=== PATIENT | female | born 1960 | race Caucasian/White ===

== ENCOUNTER 2016-05-08 13:35 | Emergency (ER) | payer OTHER ==
[~2016-05-08] VITALS: Ht 165.1 cm; Wt 54.4 kg
[~2016-05-08 13:35] MED LIST: CIPRO250 MG PO; COLACE100 M1 PO; LEVOFLOXACIN750 MG PO; NORCO 10/325 MG1 TAB PO; NORCO 5/325 MG1 TAB PO; TAPAZOLE10 M1 PO; TAPAZOLE10 MG PO
--- NOTE | 2016-05-08 13:45 | NUR ---
Patient ambulated to bed 01.
--- NOTE | 2016-05-08 13:47 | NUR ---
Dr. Ibarra evaluating patient at bedside.
[2016-05-08 13:50] VITALS: BP 147/95
[2016-05-08] MEDS ORDERED: TOPROL XL50 MG PO (13:53)
[2016-05-08] MEDS ORDERED: KETOROLAC 30 MG/ML VIAL IM ONE (13:55)
[2016-05-08] MEDS ORDERED: HYDROcodone/APAP 5/325 MG 1 TAB TAB PO ONE (13:55)
--- NOTE | 2016-05-08 14:02 | NUR ---
US AT BEDSIDE.
--- NOTE | 2016-05-08 14:20 | NUR ---
PT C/O RIGHT ANKLE/CALVE PAIN X 3 DAYS, STATES NO TRAUMA; DENIES N/V/D; SKIN IS PINK/WARM/DRY; AAOX4 WITH EVEN AND STEADY GAIT; LUNGS CLEAR BL; HR EVEN AND REGULAR; PT DENIES ANY FEVER, CP, SOB, OR COUGH AT THIS TIME; PATIENT STATES PAIN OF 9/10 AT THIS TIME; VSS; PATIENT POSITIONED FOR COMFORT; HOB ELEVATED; BEDRAILS UP X2; BED DOWN. ER MD MADE AWARE OF PT STATUS.
--- NOTE | 2016-05-08 14:27 | NUR ---
XRAY TAKEN AT BEDSIDE ON RIGHT ANKLE BY [employer] HELPER MELODY
[2016-05-08 15:08] VITALS: BP 149/89
== END 2016-05-08 15:08 | disposition home or self-care (01) ==
LOC: MED 13:35
DX: M25.571 Pain in right ankle and joints of right foot (principal); M25.471 Effusion, right ankle; I48.91 Unspecified atrial fibrillation; I10 Essential (primary) hypertension
CPT/HCPCS: 73590; 73610; 93971; 96372; 99284; J1885; Q0092

== ENCOUNTER 2016-08-05 17:14 | Emergency (ER) | payer OTHER ==
[~2016-08-05] VITALS: Ht 165.1 cm; Wt 54.4 kg
[~2016-08-05 17:14] MED LIST changes: +TOPROL XL50 MG PO
[2016-08-05 18:58] VITALS: BP 142/105
--- NOTE | 2016-08-05 20:07 | NUR ---
PT TAKEN TO BED 7
--- NOTE | 2016-08-05 20:11 | NUR ---
PT PRESENT TO ER WITH C/O LFT LOWER BACK PAIN X 3HOURS AGO WITH NAUSEA AND DIARRHEA BUT NO VOMITING. HX; KIDNEY STONE, AFIB 3 YEARS AGO, HTN, HYPOTHYROIDISM
[2016-08-05] MEDS ORDERED: NACL 0.9% 500 ML IV ONE (21:05)
[2016-08-05] MEDS ORDERED: ONDANSETRON 4 MG/2 ML VIAL IVP ONE (21:05)
[2016-08-05] MEDS ORDERED: HYDROcodone/APAP 5/325 MG 1 TAB TAB PO ONE (22:20)
[2016-08-05 22:44] VITALS: BP 137/84
--- NOTE | 2016-08-05 22:45 | NUR ---
Patient discharged with v/s stable. Written and verbal after care instructions given and explained. Patient alert, oriented and verbalized understanding of instructions. Ambulatory with steady gait. All questions addressed prior to discharge. ID band removed. Patient advised to follow up with PMD. Rx of NORCO 5MG-325MG PO, MOTRIN 600MG PO given. Patient educated on indication of medication including possible reaction and side effects. Opportunity to ask questions provided and answered.
== END 2016-08-05 22:45 | disposition home or self-care (01) ==
LOC: MED 17:14
DX: R10.9 Unspecified abdominal pain (principal); I10 Essential (primary) hypertension; M54.5 Low back pain; E03.9 Hypothyroidism, unspecified
CPT/HCPCS: 36415; 76770; 80053; 81001; 81025; 83690; 85025; 96361; 96374; 99285; J2405; J7030; Q0092

== ENCOUNTER 2016-09-17 12:57 | Emergency (ER) | payer OTHER ==
[~2016-09-17] VITALS: Ht 165.1 cm; Wt 54.4 kg
[~2016-09-17 12:57] MED LIST changes: -CIPRO250 MG PO; -COLACE100 M1 PO; -LEVOFLOXACIN750 MG PO; +METH-426 PO; +METO50TE2 PO; -NORCO 10/325 MG1 TAB PO; -NORCO 5/325 MG1 TAB PO; -TAPAZOLE10 M1 PO; -TAPAZOLE10 MG PO; -TOPROL XL50 MG PO
[2016-09-17 13:16] VITALS: BP 151/96
--- NOTE | 2016-09-17 13:23 | NUR ---
URINE COLLECTED IN TRIAGE. FACE MASK APPLIED TO PT.
--- NOTE | 2016-09-17 15:15 | NUR ---
PATIENT LEFT WITHOUT BEING SEEN BY DR. TURCIOS. NO FURTHER CARE PROVIDED FOR PATIENT.
== END 2016-09-17 15:15 | disposition left against medical advice (07) ==
LOC: MED 12:57
DX: R51 Headache (principal); Z53.21 Procedure and treatment not carried out due to patient leaving prior to being seen by health care provider

== ENCOUNTER 2016-12-19 13:32 | Emergency (ER) | payer OTHER ==
[~2016-12-19] VITALS: Ht 162.6 cm; Wt 54.1 kg
[~2016-12-19 13:32] MED LIST changes: +CIPRO250 MG PO; +COLACE100 M1 PO; +LEVOFLOXACIN750 MG PO; -METH-426 PO; -METO50TE2 PO; +NORCO 10/325 MG1 TAB PO; +NORCO 5/325 MG1 TAB PO; +TAPAZOLE10 M1 PO; +TAPAZOLE10 MG PO; +TOPROL XL50 MG PO
[2016-12-19 13:56] VITALS: BP 144/80
--- NOTE | 2016-12-19 15:00 | NUR ---
PATIENT PRESENTS TO ED WITH LEFT ANKLE PAIN . PT STATES . DENIES N/V/D; SKIN IS PINK/WARM/DRY; AAOX4 WITH EVEN AND STEADY GAIT; LUNGS CLEAR BL; HR EVEN AND REGULAR; PT DENIES ANY FEVER, CP, SOB, OR COUGH AT THIS TIME; PATIENT STATES PAIN OF 4/10 AT THIS TIME; VSS. ER MD MADE AWARE OF PT STATUS.
[2016-12-19] MEDS ORDERED: KETOROLAC 60 MG/2 ML VIAL IM ONE (15:30)
[2016-12-19 15:54] VITALS: BP 132/84
== END 2016-12-19 15:54 | disposition home or self-care (01) ==
LOC: MED 13:32
DX: M25.372 Other instability, left ankle (principal); M25.572 Pain in left ankle and joints of left foot; I48.91 Unspecified atrial fibrillation; I10 Essential (primary) hypertension; W18.30XA Fall on same level, unspecified, initial encounter; Y93.89 Activity, other specified; Y92.89 Other specified places as the place of occurrence of the external cause; Y99.8 Other external cause status
CPT/HCPCS: 73610; 96372; 99284; J1885

== ENCOUNTER 2017-01-09 12:56 | Emergency (ER) | payer OTHER ==
[~2017-01-09] VITALS: Ht 162.6 cm; Wt 54.1 kg
[~2017-01-09 12:56] MED LIST changes: -CIPRO250 MG PO; -COLACE100 M1 PO; -LEVOFLOXACIN750 MG PO; +METH-426 PO; +METO50TE2 PO; -NORCO 10/325 MG1 TAB PO; -NORCO 5/325 MG1 TAB PO; -TAPAZOLE10 M1 PO; -TAPAZOLE10 MG PO; -TOPROL XL50 MG PO
[2017-01-09 13:08] VITALS: BP 119/84
--- NOTE | 2017-01-09 15:35 | NUR ---
Patient to OF.
--- NOTE | 2017-01-09 15:37 | NUR ---
56F BIB SELF C/O BUG BITE TO RT 1ST DIGIT; PT STATES " I WAS MOVING SOMETHING, AND I THINK MAYBE A SPIDER BIT ME"; PT C/O ACHING/BURNING PAIN TO RT 1ST DIGIT, NON-RADIATING, 8/10 X 2 DAYS; ERYTHEMA/SWELLING WITH WHITE CENTER NOTED WITH NO DRAINAGE TO SITE AT THIS TIME; RT RADIAL PULSE +3, RT CAP REFILL IMMEDIATE, NO LOSS OF SENSATION TO RT HAND AT THIS TIME; PT C/O NAUSEA, BUT STATES NO VOMITING OR DIARRHEA AT THIS TIME; ABDOMEN SOFT, NON-TENDER, ACTIVE BOWEL SOUNDS X 4 QUADRANTS; PT AA&OX4, PERRLA, BL LUNG SOUNDS CLEAR, RR EVEN/UNLABORED, SKIN IS WARM/DRY/INTACT; STEADY GAIT; PT RESTING IN OVERFLOW, POSITIONED FOR COMFORT; ER MD NOTIFIED; WILL CONTINUE TO MONITOR.
[2017-01-09 15:56] VITALS: BP 129/84
== END 2017-01-09 15:56 | disposition home or self-care (01) ==
LOC: MED 12:56
DX: S60.361A Insect bite (nonvenomous) of right thumb, initial encounter (principal); I10 Essential (primary) hypertension; I48.91 Unspecified atrial fibrillation; Z79.899 Other long term (current) drug therapy; W57.XXXA Bitten or stung by nonvenomous insect and other nonvenomous arthropods, initial encounter; Y93.89 Activity, other specified; Y92.89 Other specified places as the place of occurrence of the external cause; Y99.8 Other external cause status
CPT/HCPCS: 99283

== ENCOUNTER 2017-11-03 10:13 | Emergency (ER) | payer OTHER ==
[~2017-11-03] VITALS: Ht 170.2 cm; Wt 52.2 kg
--- NOTE | 2017-11-03 10:16 | NUR ---
PT AMBULATED TO ER BED 06
[2017-11-03 10:21] VITALS: BP 154/88
--- NOTE | 2017-11-03 10:30 | NUR ---
PT. CAME INTO THE ED DUE TO SIMON X 2 DAYS. PT. STATES " I HAVE HAD A HORRIBLE HEADACHE FOR 2 DAYS AND IT HAS BEEN GETTING WORSE AND I FEEL WEAK". PT. HAS 9/10 PAIN IN BACK OF HEAD THAT IS NON RADIATIN AND SENSITIVE TO TOUCH AND DESCRIBED BURNING AND PINS AND NEEDLES. PT. STATES " SOMEWHAT BLURRY VISION", NO HEARING CHANGES. PUPILS EQUAL ROUND AND REACTIVE TO LIGHT BILAT. 3MM . DENIES SOB, DENIES CHEST PAIN. DENIES N/V/D. ER MD NOTIFIED. WILL CONTINUE TO MONITOR.
--- NOTE | 2017-11-03 10:44 | NUR ---
DR. ALLISON IN ROOM EVALUATING PATIENT AT THIS TIME.
[2017-11-03] MEDS ORDERED: LIDOCAINE 1% 500 MG/50 ML VIAL INJ SCH (10:50)
[2017-11-03] MEDS ORDERED: LIDOCAINE MPF 1% - 5 mL VIAL 5 ML ONE (10:58)
[2017-11-03 11:25] VITALS: BP 150/82
== END 2017-11-03 11:25 | disposition home or self-care (01) ==
LOC: MED 10:13
DX: G44.209 Tension-type headache, unspecified, not intractable (principal); H53.149 Visual discomfort, unspecified; R53.1 Weakness; M43.6 Torticollis; H53.8 Other visual disturbances; Z79.899 Other long term (current) drug therapy; I10 Essential (primary) hypertension; E07.9 Disorder of thyroid, unspecified; Z90.49 Acquired absence of other specified parts of digestive tract
CPT/HCPCS: 20552; 99283; J2001

== ENCOUNTER 2017-11-08 12:37 | Emergency (ER) | payer OTHER ==
[~2017-11-08] VITALS: Ht 165.1 cm; Wt 52.2 kg
[2017-11-08 12:47] VITALS: BP 142/95
--- NOTE | 2017-11-08 12:53 | NUR ---
pt ambulates to bed 1 at this time w/ steady gait. report given to kim meehan
--- NOTE | 2017-11-08 12:55 | NUR ---
57 /F bib self w/ c/o headache x5-6 days. REPORTED N/D. SEEN HERE WITH SAME S/S X 4 DAYS AGO dx tension headache, given tramadol. pt reports that the pain never improved and has since gotten worse. pt reports that her vision has gotten blurry and that she feels shakey. pt reports that she hit the back of her head on the back board of her bed just prior to the headache starting. aaox4, gcs 15, cms intact, rr even and unlabored. lungs clear. ambulatory w/ even, steady gait. hx hyperthyroidoism, htn rx methylmazole, metropolol
[2017-11-08] MEDS ORDERED: KETOROLAC 60 MG/2 ML VIAL IM ONE (13:10)
[2017-11-08] MEDS ORDERED: MORPHINE SULFATE 2 MG/ML SYR IM ONE (13:10)
[2017-11-08] MEDS ORDERED: METOCLOPRAMIDE 10 MG TAB PO ONE (13:10)
--- NOTE | 2017-11-08 13:30 | NUR ---
PT TAKEN TO CT VIA W/C, ACCOMPANIED BY [employer] OFFICER.
[2017-11-08 14:15] LABS: APPEARANCE,URINE CLEAR (CLEAR); BILIRUBIN,URINE NEGATIVE (NEGATIVE); BLOOD, URINE NEGATIVE (NEGATIVE); COLOR,URINE YELLOW (YELLOW); LEUKOCYTE ESTERASE ,URINE NEGATIVE (NEGATIVE); NITRITE, URINE NEGATIVE (NEGATIVE); UGLUCOSE NEGATIVE (NEGATIVE)
[2017-11-08 15:05] VITALS: BP 131/86
--- NOTE | 2017-11-08 15:05 | NUR ---
Patient discharged with v/s stable. Written and verbal after care instructions given and explained. Patient alert, oriented and verbalized understanding of instructions. Ambulatory with steady gait. All questions addressed prior to discharge. ID band removed. Patient advised to follow up with PMD. Rx of FIORICET given. Patient educated on indication of medication including possible reaction and side effects. Opportunity to ask questions provided and answered.
== END 2017-11-08 15:05 | disposition home or self-care (01) ==
LOC: MED 12:37
DX: R51 Headache (principal); M43.6 Torticollis; H53.149 Visual discomfort, unspecified; I10 Essential (primary) hypertension; I48.91 Unspecified atrial fibrillation; Z90.89 Acquired absence of other organs; Z79.899 Other long term (current) drug therapy
CPT/HCPCS: 70450; 81003; 81025; 96372; 99285; J1885; J2270; J8597

== ENCOUNTER 2017-11-09 13:09 | Emergency (ER) | payer OTHER ==
[~2017-11-09] VITALS: Ht 165.1 cm; Wt 52.2 kg
[2017-11-09 13:17] VITALS: BP 111/78
[2017-11-09] MEDS: KETOROLAC 60 MG/2 ML VIAL IM ONE (14:34)
[2017-11-09] MEDS: MORPHINE SULFATE 4 MG/ML SYR IM ONE (15:30)
[2017-11-09] MEDS: ONDANSETRON 4 MG ODT PO ONE (15:30)
[2017-11-09 16:26] VITALS: BP 115/80
== END 2017-11-09 16:20 | disposition home or self-care (01) ==
LOC: MED 13:09
DX: R51 Headache (principal); R11.0 Nausea; M43.6 Torticollis; H53.8 Other visual disturbances; I48.91 Unspecified atrial fibrillation; I10 Essential (primary) hypertension; E03.9 Hypothyroidism, unspecified; Z79.899 Other long term (current) drug therapy
CPT/HCPCS: 81002; 96372; 99284; J1885; J2270; S0119

== ENCOUNTER 2017-12-07 17:43 | Emergency (ER) | payer OTHER ==
[~2017-12-07] VITALS: Ht 165.1 cm; Wt 52.2 kg
[2017-12-07 17:49] VITALS: BP 180/107
[2017-12-07] MEDS: diphenhydrAMINE 50 MG/ML VIAL IVP ONE (18:27)
[2017-12-07] MEDS: METOCLOPRAMIDE 10 MG/2 ML INJ VIAL IVP ONE (18:28)
[2017-12-07] MEDS: NACL 0.9% 1,000 ML IV ONE (18:28)
[2017-12-07 18:54] LABS: APPEARANCE,URINE CLEAR (CLEAR); COLOR,URINE YELLOW (YELLOW)
[2017-12-07 18:55] LABS: BLOOD, URINE NEGATIVE (NEGATIVE); UGLUCOSE NEGATIVE (NEGATIVE)
[2017-12-07 18:56] LABS: BILIRUBIN,URINE NEGATIVE (NEGATIVE); LEUKOCYTE ESTERASE ,URINE NEGATIVE (NEGATIVE); NITRITE, URINE NEGATIVE (NEGATIVE)
[2017-12-07 21:00] VITALS: BP 131/89
== END 2017-12-07 21:00 | disposition home or self-care (01) ==
LOC: MED 17:43
DX: R51 Headache (principal); R42 Dizziness and giddiness; R11.0 Nausea; H53.8 Other visual disturbances; I48.91 Unspecified atrial fibrillation; I10 Essential (primary) hypertension; E05.90 Thyrotoxicosis, unspecified without thyrotoxic crisis or storm
CPT/HCPCS: 70450; 81003; 81025; 96360; 96372; 99285; J1200; J2765; J7030

== ENCOUNTER 2018-01-14 14:00 | Emergency (ER) | payer OTHER ==
[~2018-01-14] VITALS: Ht 165.1 cm; Wt 52.2 kg
[~2018-01-14 14:00] MED LIST changes: +METH-1632 PO; -METH-426 PO
--- NOTE | 2018-01-14 14:05 | NUR ---
PT AMBULATES TO BED 5
[2018-01-14 14:08] VITALS: BP 155/96
--- NOTE | 2018-01-14 14:12 | NUR ---
57/F C/O SIMON, N/V AND BLURRED VISION X 1 DAY. HX--A FIB, RENAL DISEASE, HYPERTENSION AND HYPERTHYROID. AAOX4 WITH EVEN AND STEADY GAIT. PATIENT STATES PAIN OF 10/10 AT THIS TIME; VSS; PATIENT POSITIONED FOR COMFORT; HOB ELEVATED; BEDRAILS UP X2; BED DOWN. ER MD MADE AWARE OF PT STATUS.
[2018-01-14] MEDS ORDERED: PROCHLORPERAZINE 10 MG/2 ML VIAL IM ONE (14:45)
[2018-01-14] MEDS ORDERED: diphenhydrAMINE 50 MG/ML VIAL IM ONE (14:45)
[2018-01-14 18:35] VITALS: BP 130/81
--- NOTE | 2018-01-14 18:35 | NUR ---
Patient discharged with v/s stable. Written and verbal after care instructions given and explained. Patient alert, oriented and verbalized understanding of instructions. Ambulatory with steady gait. All questions addressed prior to discharge. ID band removed. Patient advised to follow up with PMD. Rx of TRAMADOL, COMPAZINE& BENADRYL given. Patient educated on indication of medication including possible reaction and side effects. Opportunity to ask questions provided and answered.
== END 2018-01-14 18:35 | disposition home or self-care (01) ==
LOC: MED 14:00
DX: G43.909 Migraine, unspecified, not intractable, without status migrainosus (principal); I48.91 Unspecified atrial fibrillation; I10 Essential (primary) hypertension; E05.90 Thyrotoxicosis, unspecified without thyrotoxic crisis or storm; Z79.899 Other long term (current) drug therapy
CPT/HCPCS: 81002; 96372; 99284; J0780; J1200

== ENCOUNTER 2018-01-31 16:22 | Emergency (ER) | payer OTHER ==
[~2018-01-31] VITALS: Ht 165.1 cm; Wt 52.8 kg
[2018-01-31 16:28] VITALS: BP 116/93
[2018-01-31] MEDS ORDERED: PROCHLORPERAZINE 10 MG/2 ML VIAL IM ONE (17:35)
[2018-01-31] MEDS ORDERED: diphenhydrAMINE 50 MG/ML VIAL IM ONE (17:35)
[2018-01-31 18:43] VITALS: BP 143/93
== END 2018-01-31 18:43 | disposition home or self-care (01) ==
LOC: MED 16:22
DX: G43.909 Migraine, unspecified, not intractable, without status migrainosus (principal); I10 Essential (primary) hypertension; E05.90 Thyrotoxicosis, unspecified without thyrotoxic crisis or storm; Z79.899 Other long term (current) drug therapy
CPT/HCPCS: 96372; 99284; J0780; J1200

== ENCOUNTER 2018-02-19 14:46 | Emergency (ER) | payer OTHER ==
[~2018-02-19] VITALS: Ht 165.1 cm; Wt 52.2 kg
--- NOTE | 2018-02-19 14:47 | NUR ---
TO BED # 8 AMBULATORY, REPORT GIVEN TO SAMI FARAH
[2018-02-19 14:57] VITALS: BP 111/69
--- NOTE | 2018-02-19 15:14 | NUR ---
57/F BIB FAMILY C/O NAUSEA, SIMON X 2 DAYS. DENIES V/D; SKIN IS PINK/WARM/DRY; AAOX4 WITH EVEN AND STEADY GAIT; LUNGS CLEAR BL; PT DENIES ANY FEVER, CP, SOB, OR COUGH AT THIS TIME; PATIENT STATES PAIN OF 10/10 AT THIS TIME. PATIENT POSITIONED FOR COMFORT; HOB ELEVATED; BEDRAILS UP X2; BED DOWN. ER MD MADE AWARE OF PT STATUS.
[2018-02-19] MEDS ORDERED: KETOROLAC 60 MG/2 ML VIAL IM ONE (15:55)
[2018-02-19] MEDS ORDERED: diphenhydrAMINE 50 MG/ML VIAL IM ONE (15:55)
[2018-02-19] MEDS ORDERED: traMADol 50 MG TAB PO ONE (15:55)
[2018-02-19] MEDS ORDERED: ONDANSETRON 4 MG ODT PO ONE (15:55)
[2018-02-19 16:32] VITALS: BP 140/76
== END 2018-02-19 16:32 | disposition home or self-care (01) ==
LOC: MED 14:46
DX: G43.909 Migraine, unspecified, not intractable, without status migrainosus (principal); I48.91 Unspecified atrial fibrillation; I10 Essential (primary) hypertension; E05.90 Thyrotoxicosis, unspecified without thyrotoxic crisis or storm; Z79.899 Other long term (current) drug therapy
CPT/HCPCS: 96372; 99283; J1200; J1885; Q0162

== ENCOUNTER 2018-02-25 15:20 | Emergency (ER) | payer OTHER ==
[~2018-02-25] VITALS: Ht 165.1 cm; Wt 65.8 kg
[2018-02-25 15:29] VITALS: BP 134/80
[2018-02-25] MEDS: METOCLOPRAMIDE 10 MG/2 ML INJ VIAL IM ONE (17:07)
[2018-02-25] MEDS: KETOROLAC 60 MG/2 ML VIAL IM ONE (17:08)
[2018-02-25 17:48] VITALS: BP 125/72
== END 2018-02-25 17:46 | disposition home or self-care (01) ==
LOC: MED 15:20
DX: R51 Headache (principal); R11.0 Nausea; R19.7 Diarrhea, unspecified; I10 Essential (primary) hypertension; E05.90 Thyrotoxicosis, unspecified without thyrotoxic crisis or storm; Z79.899 Other long term (current) drug therapy
CPT/HCPCS: 96372; 99283; J1885; J2765

== ENCOUNTER 2018-03-03 12:47 | Emergency (ER) | payer OTHER ==
[~2018-03-03] VITALS: Ht 165.1 cm; Wt 52.2 kg
[2018-03-03 12:50] VITALS: BP 114/86
--- NOTE | 2018-03-03 12:56 | NUR ---
Patient ambulated to bed 11. RN evaluating patient at bedside.
--- NOTE | 2018-03-03 12:57 | NUR ---
PATIENT PRESENTS TO ED WITH THE CHIEF C/O HEADACHE. PT STATES HEADACHE STARTED 1 HOUR AGO. HAS BLURRY VISION, DIZZINESS. STATES SHE IS NAUSEATED, THREW UP X1. PT TOOK ECEDRIN BUT PAIN DID NOT RELIEVE. DENIES DIARRHEA. SKIN IS PINK/WARM/DRY; AAOX4 WITH EVEN AND STEADY GAIT. PT DENIES ANY FEVER, SOB, OR COUGH AT THIS TIME; PATIENT STATES PAIN OF 10/10 AT THIS TIME; VSS; PATIENT POSITIONED FOR COMFORT; HOB ELEVATED; BEDRAILS UP X2; BED DOWN. ER MD MADE AWARE OF PT STATUS.
--- NOTE | 2018-03-03 13:13 | NUR ---
PT BEING EVALUATED BY DR. MCDONALD.
[2018-03-03] MEDS ORDERED: KETOROLAC 60 MG/2 ML VIAL IM ONE (13:20)
[2018-03-03] MEDS ORDERED: METOCLOPRAMIDE 10 MG/2 ML INJ VIAL IM ONE (13:20)
--- NOTE | 2018-03-03 14:15 | NUR ---
PT APPEARS TO BE RELAXED. RESTING IN BED. DENIES NAUSEA AT THIS TIME.
--- NOTE | 2018-03-03 15:12 | NUR ---
NURSE WENT TO PATIENT ROOM TO CHECK PT. PT WAS NOT IN BED.
--- NOTE | 2018-03-03 15:12 | NUR ---
PATIENT ELOPED FROM FACILITY. DISCHARGE INSTRUCTIONS NOT GIVEN TO PATIENT. NOTIFIED.
== END 2018-03-03 15:12 | disposition left against medical advice (07) ==
LOC: MED 12:47
DX: R51 Headache (principal); H53.149 Visual discomfort, unspecified; R11.0 Nausea; I10 Essential (primary) hypertension; E07.9 Disorder of thyroid, unspecified; Z79.899 Other long term (current) drug therapy
CPT/HCPCS: 96372; 99283; J1885; J2765